=== PATIENT | female | born 1950 | race Caucasian/White ===

== ENCOUNTER 2019-05-03 08:16 | Emergency (ER) | payer BC, OTHER ==
[~2019-05-03] VITALS: Ht 167.6 cm; Wt 61.2 kg
[2019-05-03 08:29] VITALS: BP_SYST 135
--- NOTE | 2019-05-03 08:30 | NUR ---
Patient to ER bed 7 to gown for evaluation. Side rails up. Report given to Yenni TELLEZ.
--- NOTE | 2019-05-03 08:32 | NUR ---
Patient arrived in the ED accompanied by her partner, c/o 9/10 pain on her neck and the back of her head that started 5 days ago. Denied any chest pain, SOB, and blurry vision. Alert and oriented x4, respirations even and unlabored, VS WNL, ambulating with a steady gait, speaking in full sentences. Partner is at bedside. Informed of the wait time. INstructed patient to notify ED staff if symptoms worsen while waiting to be seen by a provider. Patient verbalized understanding.
--- NOTE | 2019-05-03 08:35 | NUR ---
ER Dr. Lucero at bedside examining patient.
[2019-05-03] MEDS ORDERED: traMADol HCL HCL 50 MG TABLET (ULTRAM) PO ONE (08:45)
[2019-05-03] MEDS ORDERED: NACL 0.9% 1,000 ML IV ONE (08:45)
[2019-05-03] MEDS ORDERED: PROCHLORPERAZINE EDISYLATE 10 MG/2 ML VIAL IVP ONE (08:45)
--- NOTE | 2019-05-03 08:45 | NUR ---
Urine specimen collected and dropped off at the lab.
--- NOTE | 2019-05-03 08:46 | NUR ---
Patient is taken to Radiology via wheelchair, in stable condition.
--- NOTE | 2019-05-03 08:50 | NUR ---
# 18 gauge angiocath placed to LAC. Use of asceptic technique. Opsite placed over site. Blood return noted. Blood for lab drawn from site. Flushed with 10 cc of normal saline. No evidence of infiltration noted. Patient tolerated well.
--- NOTE | 2019-05-03 09:22 | NUR ---
ECG done at bedside as ordered by Dr. Lucero. Patient tolerated the procedure well.
[2019-05-03 09:34] LABS: CALCIUM 9.1 mg/dL (8.4-11.0); CREATININE 0.91 mg/dL (0.55-1.30); POTASSIUM 3.7 mmol/L (3.5-5.1)
[2019-05-03 09:36] LABS: BASOPHILS # (AUTO) 0.1 K/uL (0.0-0.2); BASOPHILS % (AUTO) 0.8 % (0.0-2.0); EOSINOPHILS # (AUTO) 0.7 K/uL (0.0-0.4); EOSINOPHILS % (AUTO) 10.8 % (0.0-4.0); HEMATOCRIT 40.4 % (36-48); HEMOGLOBIN 13.9 g/dL (12.0-16.0); LYMPHOCYTES # (AUTO) 0.5 K/uL (1.0-5.5); LYMPHOCYTES % (AUTO) 7.3 % (20.5-51.5); MEAN CORPUSCULAR HEMOGLOBIN 33 pg (27-31); MEAN CORPUSCULAR HGB CONC 34 % (32-36); MEAN CORPUSCULAR VOLUME 95 fL (79.0-98.0); MONOCYTES # (AUTO) 0.6 K/uL (0.0-1.0); MONOCYTES % (AUTO) 9.7 % (1.7-9.3); NEUTROPHILS # (AUTO) 4.7 K/uL (1.8-7.7); NEUTROPHILS % (AUTO) 71.4 % (40.0-70.0); PLATELET COUNT (AUTO) 420 K/uL (130-430); PROTHROMBIN TIME 10.4 SECS (9.5-12.5); RED BLOOD CELL COUNT(AUTO) 4.24 MIL/uL (4.2-6.2); RED CELL DISTRIBUTION WIDTH 12.7 % (9.0-15.0); WHITE BLOOD COUNT (AUTO) 6.5 K/uL (4.8-10.8)
[2019-05-03 09:40] LABS: ALBUMIN 3.5 g/dL (3.4-4.8); TOTAL BILIRUBIN 0.3 mg/dL (0.0-1.0)
[2019-05-03 09:41] LABS: BILIRUBIN,URINE 1+ (NEGATIVE); CLARITY/URINE CLEAR (CLEAR); COLOR,URINE YELLOW (YELLOW); GLUCOSE,URINE NEGATIVE (NEGATIVE); KETONES,URINE NEGATIVE (NEGATIVE); LEUKOCYTE ESTERASE ,URINE NEGATIVE (NEGATIVE); NITRITE, URINE NEGATIVE (NEGATIVE); PH,URINE 5.5 (5.0-8.0); PROTEIN URINE 1+ (NEGATIVE); UROBILINOGEN,URINE 0.2 (0.2-1.0)
[2019-05-03] MEDS ORDERED: ESTR2TAB5 PO (09:41)
[2019-05-03 09:43] LABS: BLOOD, URINE TRACE (NEGATIVE)
[2019-05-03 09:49] LABS: BACTERIA,URINE FEW /HPF (None Seen); MUCUS,URINE 1+ /LPF (None Seen)
--- NOTE | 2019-05-03 10:53 | NUR ---
IV discontinued as ordered by Dr. Lucero, angiocatheter intact. Patient tolerated the procedure well.
--- NOTE | 2019-05-03 10:54 | NUR ---
Patient given written and verbal discharge instructions and verbalizes understanding. ER MD discussed with patient the results and treatment provided. Patient in stable condition. ID arm band removed. IV catheter removed intact and dressing applied, no active bleeding. Rx of Zpak, vantin and tylenol given. Patient educated on pain management and to follow up with PMD. Pain Scale 0/10. Opportunity for questions provided and answered. Medication side effect fact sheet provided.
[2019-05-03 10:56] VITALS: BP_SYST 132
== END 2019-05-03 10:54 | disposition home or self-care (01) ==
LOC: SED 08:16
DX: R51 Headache (principal); J18.9 Pneumonia, unspecified organism; N39.0 Urinary tract infection, site not specified; R91.8 Other nonspecific abnormal finding of lung field
CPT/HCPCS: 36415; 70450; 71045; 80053; 81000; 84484; 85025; 85610; 85730; 87086; 93005; 96374; 99284; J0780; J7030